=== PATIENT | male | born 1965 | race Caucasian/White ===

== ENCOUNTER 2017-08-30 08:32 | Emergency (ER) | payer OTHER ==
[~2017-08-30] VITALS: Ht 180.3 cm; Wt 124.7 kg
[~2017-08-30 08:32] MED LIST: ADV250/50 HHN; ALLOPURINOL PO; ALLOPURINOL100 MG PO; ALMACONE PO; AMBIEN PO; ASPIR 8181 MG PO; BENAZEPRIL HYDR20 M1 PO; CALCIUM ANTACID PO; CARISOPRODOL350 PO; CEL20 PO; CHLORPROMAZINE100 M2 PO; CLONAZEPAM PO; CLONAZEPAM1 MG PO; COUGH PO; DIPHENHYDRAMINE50 MG PO; DORZOLAMIDE HYD10 M2 OU; GLU500 PO; KEN10; LAMOTRIGINE200 M1 PO; LATUDA PO; LATUDA80 M1 PO; LEVOXYL0.075 MG PO; LIPI20 PO; LOT10 PO; MI-ACID GAS PO; OMEPRAZOLE40 M1 PO; PRI20 PO; PROINH HHN; PROPANOLOL PO; SING10 PO; SYN25 PO; THORAZINE PO; TRUOS OU; VITAMIN D32000 I2 PO; WELSR PO; XALOS; ZOC20 PO; ZOLOFT100 MG PO; [UNRECOGNIZED DRUG - OTHER] IM; [UNRECOGNIZED DRUG - OTHER] PO; [UNRECOGNIZED DRUG - OTHER] PO; [UNRECOGNIZED DRUG - OTHER] PO; [UNRECOGNIZED DRUG - OTHER] PO
[2017-08-30 08:46] VITALS: Ht 180.3 cm; Wt 124.7 kg
[2017-08-30 10:07] LABS: microscopic required? NO
[2017-08-30 10:16] LABS: BASOPHIL % 0.6 % (0-2); PLATELET COUNT 220 x10^3mcL (130-400)
[2017-08-30 10:18] LABS: RED CELL DISTRIBUTION WIDTH 16.4 % (11.5-14.5)
[2017-08-30 10:24] LABS: CALCIUM 9.8 mg/dL (8.5-10.1); CARBON DIOXIDE 22.5 mmol/L (21-32); CHLORIDE SERUM 106 mmol/L (98-107); CREATININE SERUM 1.2 mg/dL (0.7-1.3); GFR1 > 60 mL/min; GLUCOSE SERUM 119 mg/dL (74-106); POTASSIUM SERUM 3.9 mmol/L (3.5-5.1); SODIUM SERUM 140 mmol/L (136-145)
[2017-08-30 10:38] LABS: ALBUMIN 3.7 g/dL (3.4-5.0); ALKALINE PHOSPHATASE 61 U/L (46-116); ALT/SGPT 30 U/L (16-63); AST/SGOT 17 U/L (15-37); BILIRUBIN TOTAL 0.36 mg/dL (0.20-1.00); TOTAL PROTEIN, SERUM 7.9 g/dL (6.4-8.2)
[2017-08-30 10:38] LABS: UA SPECIFIC GRAVITY 1.025 (1.005-1.035); urine erythrocyte NEGATIVE (NEGATIVE)
[2017-08-30 10:54] LABS: AMPHETAMINE QUAL UR NONE DETECTED (NEG <=1000)
[2017-08-30 11:40] VITALS: BP 124/73
== END 2017-08-30 11:41 | disposition home or self-care (01) ==
LOC: ED 08:32
PROVIDERS: Emergency Medicine
DX: R53.1 Weakness (principal); I10 Essential (primary) hypertension; E11.9 Type 2 diabetes mellitus without complications; Z88.0 Allergy status to penicillin; Z88.8 Allergy status to other drugs, medicaments and biological substances
CPT/HCPCS: 36415; 83880; 87804

== ENCOUNTER 2018-12-21 14:31 | Emergency (ER) | payer OTHER ==
[~2018-12-21] VITALS: Ht 180.3 cm; Wt 124.7 kg
[2018-12-21 14:38] VITALS: Ht 180.3 cm; Wt 124.7 kg
[2018-12-21 18:44] VITALS: BP 130/76
== END 2018-12-21 18:44 | disposition home or self-care (01) ==
LOC: ED 14:31
DX: M25.552 Pain in left hip (principal); J45.909 Unspecified asthma, uncomplicated; I10 Essential (primary) hypertension; E11.9 Type 2 diabetes mellitus without complications; Z88.0 Allergy status to penicillin; Z91.030 Bee allergy status

== ENCOUNTER 2019-05-05 10:39 | Emergency (ER) | payer OTHER ==
[~2019-05-05] VITALS: Ht 180.3 cm; Wt 121.1 kg
[2019-05-05 10:41] VITALS: Ht 180.3 cm; Wt 121.1 kg
[2019-05-05 12:58] VITALS: BP 120/66
== END 2019-05-05 12:58 | disposition home or self-care (01) ==
LOC: ED 10:39
DX: M72.2 Plantar fascial fibromatosis (principal); J45.909 Unspecified asthma, uncomplicated; I10 Essential (primary) hypertension; Z88.0 Allergy status to penicillin; Z91.030 Bee allergy status
CPT/HCPCS: 82962; Q0092

== ENCOUNTER 2019-06-23 08:55 | Emergency (ER) | payer OTHER ==
[~2019-06-23] VITALS: Ht 182.9 cm; Wt 123.4 kg
[2019-06-23 11:10] VITALS: BP 107/57
== END 2019-06-23 11:10 | disposition home or self-care (01) ==
LOC: ED 08:55
DX: M72.2 Plantar fascial fibromatosis (principal); F17.210 Nicotine dependence, cigarettes, uncomplicated; J45.909 Unspecified asthma, uncomplicated; I10 Essential (primary) hypertension; E11.9 Type 2 diabetes mellitus without complications; Z98.890 Other specified postprocedural states; Z88.0 Allergy status to penicillin; Z91.048 Other nonmedicinal substance allergy status; Z91.030 Bee allergy status
CPT/HCPCS: 99406

== ENCOUNTER 2019-07-26 18:10 | Emergency (ER) | payer OTHER ==
[~2019-07-26] VITALS: Ht 180.3 cm; Wt 123.8 kg
[2019-07-26 18:13] VITALS: BP 136/81; Ht 180.3 cm; Wt 123.8 kg
== END 2019-07-26 21:11 | disposition home or self-care (01) ==
LOC: ED 18:10
DX: S22.41XA Multiple fractures of ribs, right side, initial encounter for closed fracture (principal); M25.461 Effusion, right knee; H57.11 Ocular pain, right eye; R03.0 Elevated blood-pressure reading, without diagnosis of hypertension; J45.909 Unspecified asthma, uncomplicated; I10 Essential (primary) hypertension; E11.9 Type 2 diabetes mellitus without complications; Z98.890 Other specified postprocedural states; Z88.0 Allergy status to penicillin; Z91.030 Bee allergy status; W10.8XXA Fall (on) (from) other stairs and steps, initial encounter; Y93.9 Activity, unspecified; Y92.89 Other specified places as the place of occurrence of the external cause; Y99.8 Other external cause status

== ENCOUNTER 2020-03-07 07:59 | Emergency (ER) | payer OTHER ==
[~2020-03-07] VITALS: Ht 182.9 cm; Wt 121.1 kg
[2020-03-07 08:08] VITALS: Ht 182.9 cm; Wt 121.1 kg
[2020-03-07 09:17] LABS: CALCIUM 9.1 mg/dL (8.5-10.1); CARBON DIOXIDE 22.9 mmol/L (21-32); CHLORIDE SERUM 103 mmol/L (98-107); CREATININE SERUM 1.2 mg/dL (0.7-1.3); GFR1 > 60 mL/min; GLUCOSE SERUM 137 mg/dL (74-106); POTASSIUM SERUM 3.8 mmol/L (3.5-5.1); SODIUM SERUM 138 mmol/L (136-145)
[2020-03-07 09:22] LABS: ALBUMIN 3.4 g/dL (3.4-5.0); ALKALINE PHOSPHATASE 59 U/L (46-116); ALT/SGPT 31 U/L (16-63); AST/SGOT 31 U/L (15-37); BASOPHIL % 0.3 % (0-2); BILIRUBIN TOTAL 0.3 mg/dL (0.20-1.00); PLATELET COUNT 183 x10^3mcL (130-400); RED CELL DISTRIBUTION WIDTH 15.1 % (11.5-14.5); TOTAL PROTEIN, SERUM 7.1 g/dL (6.4-8.2)
[2020-03-07 11:48] VITALS: BP 128/79
== END 2020-03-07 11:45 | disposition home or self-care (01) ==
LOC: ED 07:59
PROVIDERS: Student in an Organized Health Care Education/Training Program
DX: S01.112A Laceration without foreign body of left eyelid and periocular area, initial encounter (principal); R55 Syncope and collapse; I10 Essential (primary) hypertension; E11.9 Type 2 diabetes mellitus without complications; Z98.890 Other specified postprocedural states; Z88.0 Allergy status to penicillin; Z91.030 Bee allergy status; Z88.8 Allergy status to other drugs, medicaments and biological substances; W18.30XA Fall on same level, unspecified, initial encounter; Y93.89 Activity, other specified; Y92.89 Other specified places as the place of occurrence of the external cause; Y99.8 Other external cause status; J45.909 Unspecified asthma, uncomplicated
CPT/HCPCS: 90715; J2001

== ENCOUNTER 2020-03-18 14:47 | Emergency (ER) | payer OTHER ==
[~2020-03-18] VITALS: Ht 182.9 cm; Wt 120.2 kg
[2020-03-18 14:54] VITALS: Ht 182.9 cm; Wt 120.2 kg
[2020-03-18 15:24] VITALS: BP 121/67
== END 2020-03-18 15:24 | disposition home or self-care (01) ==
LOC: ED 14:47
DX: S01.111D Laceration without foreign body of right eyelid and periocular area, subsequent encounter (principal); I10 Essential (primary) hypertension; E11.9 Type 2 diabetes mellitus without complications; J45.909 Unspecified asthma, uncomplicated; J44.9 Chronic obstructive pulmonary disease, unspecified; Z88.0 Allergy status to penicillin; X58.XXXD Exposure to other specified factors, subsequent encounter